=== PATIENT | female | born 1985 | race Caucasian/White ===

== ENCOUNTER 2016-08-08 21:03 | Outpatient (CLI) | payer MEDICAID ==
[2016-08-08 21:40] LABS: BLOOD, URINE NEGATIVE (NEGATIVE); COLOR,URINE YELLOW (YELLOW); LEUKOCYTE ESTERASE ,URINE NEGATIVE (NEGATIVE); NITRITE,URINE NEGATIVE (NEGATIVE); UROBILINOGEN,URINE 0.2 EU/DL (NORMAL)
[2016-08-08] MEDS ORDERED: LABE200T PO (21:42)
[2016-08-08] MEDS ORDERED: PREN1TAB73 PO (21:44)
[2016-08-08] MEDS ORDERED: ACET-2723 PO (21:47)
--- NOTE | 2016-08-09 12:14 | PNF ---
DATE: 08/08/2016 SUBJECTIVE This is a 31-year-old white female, G3, P1 at 29.4 weeks gestational age. She sees Dr. Barnett in [place]. She lives in [place]. She is visiting a friend in [place]. She is here today because she had a popping sensation one week ago in her vaginal area but not really in the vagina , just above that. It recurred again today. She has also had pain in her abdomen that began about two days ago. It is not like contractions - it is just generally sore. PAST HISTORY 1. SAB at 18 years old. 2. "Stillbirth" that sounds like it was due to abruption and placenta previa when she was 23 years old. CURRENT PROBLEMS Chronic hypertension for which she is on labetalol b.i.d. Elevated BMI. The patient reports that she has had "trouble this whole with either nausea or pain, feeling yucky or it has just been a horrible ." Her friend states she has been to the ER multiple times. I asked her about her location. She said she lives in [place] but she trusts Dr. Barnett and that is why she goes to [place] to see him. I asked about her last visit and she states that she had some insurance troubles so she hasn't seen him for a while but she has an appointment this . I did a UA which was negative for any UTI or dehydration. I did an abdominal exam and her uterus is soft and nontender. When I try to locate exactly where she is feeling the most pain and tenderness it is centered over her pubic symphysis. She has had no spotting, no bleeding. I offered to check her cervix but she states she is not having contractions and we both agree that her cervix does not need to be checked at 29 weeks with no spotting, no bleeding and no contractions. I don't have her current OB records here. On further talking with the patient and her friend, it appears that most of the trouble is probably from round ligament which is inserting on her pubic symphysis and that is likely the source of the popping sensation that she had. UA was negative. heart tones were 150 baseline and reactive. There were no contractions the whole time I was in the room and her uterus was soft and nontender. The patient just states a lot of frustration with . She has taken Tylenol and warm baths. I discussed Benadryl as an option and she says that makes her "hyped up, not relaxed", so Benadryl is not a good option for her. I recommend talking to Dr. Barnett about other options for pain relief. The patient is just very frustrated about her . I had suggested calling Tuesday and having the appointment moved up and she said, "I could barely get a appointment - I think there is no chance of moving it up." I talked to her about calling the on-call doctor and she states that they just have a message that says go to the ER. I talked to her about going to the [facility] there and perhaps being able to be evaluated there. Her friend says she has been to the ER many times this and they have never found anything as a big problem which is a "mixed blessing because everything is fine, but she still feels uncomfortable." Questions were answered to the patient and her friend's satisfaction. NISREEN
== END 2016-08-08 22:10 ==
LOC: OBOBS 21:03 → MC 21:03 → OBOBS 22:10
PROVIDERS: ATTEND Obstetrics & Gynecology
DX: O26.893 Other specified pregnancy related conditions, third trimester (principal); R10.2 Pelvic and perineal pain; Z3A.29 29 weeks gestation of pregnancy
CPT/HCPCS: 81003